=== PATIENT | female | born 1970 | race African-American/Black ===

== ENCOUNTER 2020-04-23 18:44 | Emergency (ER) | payer OTHER ==
[~2020-04-23] VITALS: Ht 154.9 cm; Wt 59.0 kg
[2020-04-23] MEDS ORDERED: JANUMET 50-1,01 EACH PO (18:52)
[2020-04-23] MEDS ORDERED: AMARYL2 M1 PO (18:52)
[2020-04-23 19:37] LABS: URINE BILIRUBIN NEGATIVE (Negative); URINE BLOOD TRACE (Negative); URINE CLARITY CLEAR; URINE COLOR YELLOW; URINE GLUCOSE-RANDOM* 3+ (Negative); URINE KETONES NEGATIVE (Negative); URINE LEUKOCYTES-REFLEX NEGATIVE (Negative); URINE NITRITE-REFLEX NEGATIVE (Negative); URINE PROTEIN (DIPSTICK) NEGATIVE (Negative); URINE SPECIFIC GRAVITY <= 1.005 (1.005-1.035); URINE UROBILINOGEN 0.2 E.U./dl (0.2-1.0)
[2020-04-23 19:42] LABS: ABSOLUTE NEUTROPHILS 3.5 thou/uL (1.4-8.2); BASOPHILS 1.1 % (0.0-2.0); EOSINOPHILS 0.7 % (0.0-3.0); HEMATOCRIT 44.7 % (37.0-47.0); HEMOGLOBIN 15.2 gm/dL (12.0-15.0); LYMPHOCYTES 34.5 % (24.0-44.0); MCH 29.6 pg (26.0-34.0); MCV 87.1 fL (80.0-100.0); MONOCYTES 6.3 % (1.0-8.0); PLATELET COUNT 273 thou/uL (150-400); POLYS 57.4 % (36.0-66.0); RBC 5.14 mil/uL (4.20-5.00); RDW 12.5 % (10.5-14.5); WBC 6.1 thou/uL (4.0-11.0)
[2020-04-23 19:55] LABS: ALBUMIN 4.3 g/dL (3.4-5.0); ANION GAP 13 mmol/L (7-16); BUN 10 mg/dL (7-18); CALCIUM 9.1 mg/dL (8.5-10.1); CHLORIDE 95 mmol/L (98-107); CO2 25 mmol/L (21-32); CREATININE 0.9 mg/dL (0.6-1.0); DIRECT BILIRUBIN < 0.1 mg/dL (<0.1-0.2); POTASSIUM 3.7 mmol/L (3.5-5.1); SGOT 13 U/L (15-37); SGPT 24 U/L (30-65); SODIUM 133 mmol/L (136-145); TOTAL BILIRUBIN 0.2 mg/dL (0.2-1.0); TOTAL PROTEIN 7.8 g/dL (6.4-8.2)
[2020-04-23 19:56] LABS: GLUCOSE 552 mg/dL (74-106)
[2020-04-23] MEDS ORDERED: REGLAN 5 MG TAB5 MG PO (22:13)
[2020-04-23 22:30] VITALS: BP 109/70
== END 2020-04-23 22:30 | disposition home or self-care (01) ==
LOC: ER 18:44
PROVIDERS: Emergency Medicine
DX: E11.65 Type 2 diabetes mellitus with hyperglycemia (principal); R51 Headache; Z91.14 Patient's other noncompliance with medication regimen; I10 Essential (primary) hypertension; F17.210 Nicotine dependence, cigarettes, uncomplicated; Z79.899 Other long term (current) drug therapy